=== PATIENT | female | born 1990 | race Caucasian/White ===

== ENCOUNTER 2016-11-24 23:29 | Emergency (ER) | payer OTHER ==
[2016-11-24 23:47] VITALS: BP 145/99
== END 2016-11-25 00:18 | disposition home or self-care (01) ==
LOC: ED 23:29
DX: N39.0 Urinary tract infection, site not specified (principal); R03.0 Elevated blood-pressure reading, without diagnosis of hypertension

== ENCOUNTER 2017-04-13 05:26 | Emergency (ER) | payer OTHER ==
[2017-04-13 06:49] VITALS: BP 129/906
== END 2017-04-13 06:49 | disposition home or self-care (01) ==
LOC: ED 05:26
DX: T78.40XA Allergy, unspecified, initial encounter (principal); T78.3XXA Angioneurotic edema, initial encounter; X58.XXXA Exposure to other specified factors, initial encounter
CPT/HCPCS: J1200; J2930

== ENCOUNTER 2017-04-16 08:45 | Emergency (ER) | payer OTHER ==
[~2017-04-16] VITALS: Ht 162.6 cm; Wt 100.3 kg
[2017-04-16 11:00] VITALS: BP 112/78
== END 2017-04-16 11:00 | disposition home or self-care (01) ==
LOC: ED 08:45
DX: M94.0 Chondrocostal junction syndrome [Tietze] (principal); L50.9 Urticaria, unspecified; E66.9 Obesity, unspecified
CPT/HCPCS: Q0092

== ENCOUNTER 2017-07-12 08:27 | Emergency (ER) | payer OTHER ==
[~2017-07-12] VITALS: Ht 162.6 cm; Wt 98.4 kg
[2017-07-12 08:30] VITALS: BP 131/87; Ht 162.6 cm; Wt 98.4 kg
== END 2017-07-12 10:10 | disposition home or self-care (01) ==
LOC: ED 08:27
DX: L50.9 Urticaria, unspecified (principal)

== ENCOUNTER 2017-12-22 00:20 | Emergency (ER) | payer OTHER ==
[~2017-12-22] VITALS: Ht 162.6 cm; Wt 96.7 kg
[2017-12-22 00:33] VITALS: Ht 162.6 cm; Wt 96.7 kg
[2017-12-22 01:26] LABS: BASOPHIL % 0.6 % (0-2); PLATELET COUNT 219 x10^3mcL (130-400); RED CELL DISTRIBUTION WIDTH 12.6 % (11.5-14.5)
[2017-12-22 01:28] LABS: CALCIUM 9.2 mg/dL (8.5-10.1); CARBON DIOXIDE 22.9 mmol/L (21-32); CHLORIDE SERUM 103 mmol/L (98-107); CREATININE SERUM 0.6 mg/dL (0.6-1.0); GFR1 > 60 mL/min; GLUCOSE SERUM 86 mg/dL (74-106); POTASSIUM SERUM 3.1 mmol/L (3.5-5.1); SODIUM SERUM 138 mmol/L (136-145)
[2017-12-22 01:32] LABS: ALKALINE PHOSPHATASE 52 U/L (46-116); ALT/SGPT 19 U/L (14-59); AST/SGOT 11 U/L (15-37); BILIRUBIN TOTAL 0.31 mg/dL (0.20-1.00); TOTAL PROTEIN, SERUM 7.4 g/dL (6.4-8.2)
[2017-12-22 01:36] LABS: ALBUMIN 3.2 g/dL (3.4-5.0)
[2017-12-22 01:42] LABS: UA SPECIFIC GRAVITY >=1.030 (1.005-1.035); microscopic required? YES; urine erythrocyte TRACE (NEGATIVE)
[2017-12-22 05:02] VITALS: BP 122/79
== END 2017-12-22 05:02 | disposition home or self-care (01) ==
LOC: ED 00:20
PROVIDERS: Emergency Medicine
DX: O23.42 Unspecified infection of urinary tract in pregnancy, second trimester (principal); O98.812 Other maternal infectious and parasitic diseases complicating pregnancy, second trimester; B37.3 Candidiasis of vulva and vagina; Z3A.16 16 weeks gestation of pregnancy; M54.5 Low back pain
CPT/HCPCS: 36415; 87491; 87591